=== PATIENT | male | born 1980 ===

== ENCOUNTER 2021-09-12 03:46 | Emergency (ER) | payer OTHER ==
[2021-09-12 04:36] LABS: CHLORIDE,CL 106 mmol/L (98-107); SODIUM,NA 141 mmol/L (136-145)
[2021-09-12] MEDS ORDERED: Ciprofloxacin 500 MG Tab PO ONE (06:05)
[2021-09-12] MEDS ORDERED: Tamsulosin 0.4 MG Cap.ER PO ONE (06:05)
== END 2021-09-12 06:31 | disposition home or self-care (01) ==
LOC: DL.ED 03:46
DX: N20.0 Calculus of kidney (principal); R93.5 Abnormal findings on diagnostic imaging of other abdominal regions, including retroperitoneum
CPT/HCPCS: 36415; 74176; 80053; 81001; 83605; 85025; 99283; 99284; A9270